=== PATIENT | male | born 1995 | race Hispanic/Latino ===

== ENCOUNTER 2016-07-05 20:18 | Emergency (ER) | payer OTHER ==
[~2016-07-05] VITALS: Ht 185.4 cm; Wt 57.7 kg
[~2016-07-05 20:18] MED LIST: ATARAX,VISTARIL25 MG PO; CORTIZONE-10 PL57 GM TP; FLEXERIL10 MG PO; KEFLEX500 MG PO; MOTRIN800 MG PO; NAPROSYN500 MG PO; ~No Medications
== END 2016-07-05 22:08 | disposition home or self-care (01) ==
LOC: EME 20:18
DX: S61.214A Laceration without foreign body of right ring finger without damage to nail, initial encounter (principal); W26.8XXA Contact with other sharp object(s), not elsewhere classified, initial encounter; Y93.G1 Activity, food preparation and clean up; F17.200 Nicotine dependence, unspecified, uncomplicated
CPT/HCPCS: 99281; 99284